=== PATIENT | female | born 1955 | race Caucasian/White ===

== ENCOUNTER → 2019-01-26 | Outpatient (CLI) | payer BC ==
--- NOTE | 2019-01-26 16:59 | Diagnostic Imaging Report ---
INDICATION: Dysphagia. TECHNIQUE: The study was performed in conjunction with speech therapy. Videofluoroscopy was performed during the swallowing of barium in multiple consistencies. The patient was administered thin, pur?e, mechanical soft as well as ham and cracker consistency. 56 seconds of fluoroscopy was utilized. FINDINGS: Oral phase was grossly unremarkable. There is normal epiotic tilt and laryngeal elevation. There is mild vallecular residue with multiple consistencies but this did clear with the second swallow. No laryngeal penetration or aspiration was observed. IMPRESSION: Essentially unremarkable video swallow apart from mild vallecular residue which did clear with repeated swallows. Dictated by: Dictated on workstation # [id number]
== END ==
LOC: RAD 09:55
PROVIDERS: ATTEND Internal Medicine Gastroenterology
DX: K21.9 Gastro-esophageal reflux disease without esophagitis (principal)
CPT/HCPCS: 74230